=== PATIENT | male | born 1990 | race Caucasian/White ===

== ENCOUNTER 2022-08-14 09:02 | Emergency (ER) | payer OTHER, SELFPAY ==
[2022-08-14 09:22] VITALS: BP 150/90; PULSE 66; RESP 18; TEMP 36.8; O2SAT 99
--- NOTE | 2022-08-14 09:38 | ED.GENADULT ---
HPI - General Adult General Chief complaint: Ear Stated complaint: rt ear discomfort Time Seen by Provider: 08/14/22 09:38 Source: patient Mode of arrival: ambulatory Limitations: no limitations History of Present Illness HPI narrative: 32-year-old male patient presents to [facility] with complaints of right ear discomfort for the past 3 days. Patient states he has been having some sinus drainage and congestion for the past week but the right ear really seem to bother him when he tried to blow his nose about 3 or 4 days ago. Patient states he did try some ear drops yesterday but it did not do anything. Denies taking any daily antihistamine. Denies fevers, body aches or chills. Denies any coughing, she had chest pain or shortness of breath. Denies abdominal pain, nausea, vomiting or diarrhea. Related Data Allergies Allergy/AdvReac Type Severity Reaction Status Date / Time No Known Allergies Allergy Verified 08/14/22 09:22 Review of Systems Review of Systems: CONSTITUTIONAL: Denies fever, chills, or sweats. EYES: Denies visual changes, redness, or discharge. ENT: positive rhinorrhea, congestion, denies sore throat, Positive right otalgia. CARDIOVASCULAR: Denies chest pain, palpitations, or edema. RESPIRATORY: Denies cough or dyspnea. GASTROINTESTINAL: Denies abdominal pain, nausea, vomiting, or diarrhea. GENITOURINARY: Denies dysuria or hematuria. SKIN: Denies rash or itching. MUSCULOSKELETAL: Denies back pain, joint pain, or myalgia. NEUROLOGIC: Denies headache, numbness, or weakness. PSYCHIATRIC: Denies anxiety or depression. [facility] Past Medical History Medical History (Updated 08/14/22 @ 09:49 by OLENA Rios) No significant past medical history Comments At the time of my signature I agree with nursing past medical history, surgical, social, and family history. There is no relevant family history pertinent to the presenting complaint. Exam Narrative: GENERAL: Well-appearing, well-nourished, and in no acute distress. HEAD: Normocephalic, atraumatic. EYES: PERRLA and EOMI. ENT: Nares with erythema and edema noted bilateral, no rhinorrhea or epistaxis. Mucous membranes moist. posterior pharynx with no erythema, tonsillar enlargement, exudates or lesions present. There is postnasal drip noted to the posterior pharynx. Bilateral TMs does have some erythema with the right ear showing some white discharge To the canal. NECK: Supple. No lymphadenopathy CHEST: Clear to auscultation. No respiratory distress. HEART: Regular rate and rhythm. No murmur heard. Normal peripheral pulses. ABDOMEN: Soft, nontender, nondistended, normal active bowel sounds. EXTREMITIES: Normal range of motion. No edema. SKIN: Warm, dry, no rash. NEURO: No focal deficits. Alert and oriented x3. Course Course Level of Care: Express Care Visit Vital Signs Vital signs: Vital Signs Temperature 36.8 C 08/14/22 09:22 Pulse Rate 66 08/14/22 09:22 Respiratory Rate 18 08/14/22 09:22 Blood Pressure 150/90 H 08/14/22 09:22 Pulse Oximetry 99 08/14/22 09:22 Oxygen Delivery Room Air 08/14/22 09:22 Temperature 36.8 C 08/14/22 09:22 Pulse Rate 66 08/14/22 09:22 Respiratory Rate 18 08/14/22 09:22 Blood Pressure 150/90 H 08/14/22 09:22 Pulse Oximetry 99 08/14/22 09:22 Oxygen Delivery Room Air 08/14/22 09:22 vital signs reviewed. The patient has been informed that they may have pre-hypertension or Hypertension based on a BP reading in the department. I recommend that the patient call the primary care provider listed on their discharge instructions or a physician of their choice this week to arrange follow up for further evaluation of possible pre-hypertension or Hypertension Medical Decision Making MDM Narrative Medical decision making narrative: Plan care for patient is to discharge home with an oral antibiotic for a bilateral ear infection as well as a daily antihistamine and nasal stero
== END 2022-08-14 09:50 | disposition home or self-care (01) ==
PROVIDERS: Emergency Provider Nurse Practitioner Family; PCP Family Medicine
DX: H66.93 Otitis media, unspecified, bilateral (principal); J32.9 Chronic sinusitis, unspecified
CPT/HCPCS: 99203; G0463